=== PATIENT | female | born 1995 | race Caucasian/White ===

== ENCOUNTER 2019-12-23 09:05 | Emergency (ER) | payer OTHER, SELFPAY ==
[2019-12-23 09:31] VITALS: BP 126/72; PULSE 94; RESP 20; TEMP 36.7; O2SAT 98; BMI 21.7
--- NOTE | 2019-12-23 09:39 | HMH.EDUTC ---
[facility] Disposition Clinical Impression: Viral upper respiratory illness, Encounter for laboratory testing for COVID-19 virus Disposition: Home, Self-Care Condition on Discharge: Good Instructions: Sore Throat, DI for Headache, DI for Nasal Congestion, Preventing the Spread of Coronavirus Discharge Instructions Additional Instructions: *Monitor Temp, Over the counter Motrin or Tylenol as directed/as needed Tylenol every 4 hours and Motrin every 6 hours (as long as your family doctor has told you that you can take it) for fever or pain. and straight to ER if unable to lower temp less than 101.0 after medication given *Warm salt water gargles may help to soothe the throat *Throat Lozenges *Warm fluids like tea with honey may help to soothe the throat *Sleep elevated *Humidifier/Vaporizer *Flonase 2 sprays in each nostril daily but be aware that it may take 2-3 days before you notice improvement Your throat swab was sent for culture. Those results are typically sent to your primary care. Be sure to follow up in 2-3 days with your family doctor/primary care physician if no improvement so they can review those result and treat if necessary. If you don?t have a primary care doctor, I recommend you get one but in the mean time, you will have to return to a walk in clinic Follow up IMMEDIATELY for new or worsening symptoms or no Noticeable improvement over the next 48-72 hours. 911 for difficulty breathing or swallowing You was tested for today for COVID19 your test result should be back later this evening, you may call back later this evening to see if your test results are back and the result You was given a handout with instructions for Self Quarantine and Self isolation for while you wait on test results and what to do if they are positive Referrals: Juan Francisco Rubin MD [Primary Care Provider] - As needed Forms: Work/School Release Medical Decision Making - Yossi Inquiry Pt receiving controlled substance: No Yossi was queried for this patient: No Vital Signs: 12/23/19 09:31 Temperature 98.0 F Temperature Source Oral Pulse Rate [Right Brachial] 94 H Respiratory Rate 20 Blood Pressure [Left Arm] 126/72 Blood Pressure Mean [Left Arm] 90 Blood Pressure Source [Left Arm] Automatic Cuff Blood Pressure Position [Left Arm] Sitting 02 Sat by Pulse Oximetry 98 Oxygen Delivery Method Room Air - Lab Data Lab results reviewed: Yes: I reviewed the patient's lab results. Lab Results 12/23/19 09:31: Tst Clinic Negative 12/23/19 09:40: Influenza Type A Ag Negative, Influenza Type B Ag Negative 12/23/19 09:40: Strep Scn Rapid Clinic Negative Orders (Tests/Meds): ORDERS Category Date Time Status Covid-19 Nasal PCR ([facility]) Routine Lab 12/23/19 09:24 Ordered Strep Screen Confirmation Stat Micro 12/23/19 09:40 Received [facility] HPI - General Stated complaint: sore throat,vomiting,diarrhea Time Seen by Provider: 12/23/19 09:39 Mode of Arrival: Ambulatory Source of Information: Patient Limitations: No Limitations Description of Symptoms (Recalled from Triage Doc. by RN): PATIENT STATES SHE STARTED HAVING DIARRHEA AND VOMITING X 3 NIGHT BEFORE LAST. SHE ALSO C/O RIGHT-SIDED HEADACHE, BODY ACHES, FATIGUE, LOW-GRADE FEVER, ABDOMINAL CRAMPING, SORE THROAT AND CONGESTION THAT STARTED YESTERDAY HEENT Symptoms (Recalled from RN notes): Yes Resp Symptoms (Recalled from RN notes): Yes Skin Symptoms (Recalled from RN notes): No MS Symptoms (Recalled from RN notes): No Functional Status (Recalled from RN notes): WNL - History of Present Illness Provider Complaint: Patient states that she had nausea and vomited a couple days ago and she took some zofran and it helped States that she hasnt vomited since then but now she is concerned she may have COVID because she is having some of the symptoms States that she has been having body aches, chills, fatigue sore throat headachce and low grade fever States that she felt like she w
[2019-12-23 10:03] LABS: UTC Influenza A Antigen Negative (Negative); UTC Strep Screen (Rapid) Negative (Negative)
[2019-12-23 10:04] LABS: UTC Influenza B Antigen Negative (Negative)
[2019-12-23 10:04] LABS: UTC Pregnancy Test, Urine Negative (Negative)
[2019-12-23 10:08] VITALS: BP 126/72; PULSE 94; RESP 20; TEMP 36.7; O2SAT 98
== END 2019-12-23 10:10 | disposition home or self-care (01) ==
PROVIDERS: Emergency Provider Nurse Practitioner; PCP Internal Medicine Adolescent Medicine
DX: Z20.828 Contact with and (suspected) exposure to other viral communicable diseases (principal); J06.9 Acute upper respiratory infection, unspecified
CPT/HCPCS: 81025; 87804; 87880; 99202; U0003

== ENCOUNTER → 2020-02-13 12:22 | Outpatient (CLI) | payer OTHER, SELFPAY ==
--- NOTE | 2020-02-13 12:29 | XR_ITS ---
PROCEDURE: XR CHEST 2V CLINICAL HISTORY: ACUTE FEBRILE ILLNESS,ACUTE URI COMPARISON: No exams were available for comparison FINDINGS: The cardiomediastinal silhouette and pulmonary vascularity are within normal limits. The lungs are clear without infiltrates, suspicious nodules, or pleural effusions. There is a linear opacity overlying the right upper chest and is felt represent an overlying artifact. No acute bony findings. There is mild thoracolumbar curvature convex left. IMPRESSION: No acute findings. Dictated by: Jass Gooden MD 02/13/2020 13:05 Jass Gooden MD in [place] 02/13/2020 13:05
[2020-02-13 13:26] LABS: Basophils % 0.2 % (0.1-2.0); Eosinophils % 0.1 % (0.1-12.0); Hematocrit 44.2 % (37.0-47.0); Hemoglobin 14.4 g/dL (12.2-16.2); Lymphocytes # 1.7 K/mm3 (0.7-4.5); Lymphocytes % 18.4 % (10-50); Mean Corpuscular HGB Conc 32.6 g/dL (31.8-35.4); Mean Corpuscular Volume 88.9 fl (81-99); Mean Platelet Volume 7.3 fl (7.4-10.4); Monocytes # 0.5 K/mm3 (0.1-1.0); Monocytes % 5.3 % (1.7-9.3); Neutrophils # 7.1 K/mm3 (1.8-7.8); Platelet Count 236 K/mm3 (142-424); Red Blood Count 4.97 M/mm3 (4.20-5.40); Red Cell Distribution Width 12.7 % (11.5-17.5); White Blood Count 9.4 K/mm3 (4.8-10.8)
== END ==
PROVIDERS: PCP Internal Medicine Adolescent Medicine; Visit Provider Nurse Practitioner Family
DX: Z03.818 Encounter for observation for suspected exposure to other biological agents ruled out (principal); R05 Cough; J06.9 Acute upper respiratory infection, unspecified
CPT/HCPCS: 36415; 71046; 85025; 87275; 87276

== ENCOUNTER → 2021-03-26 10:36 | Outpatient (CLI) | payer OTHER, SELFPAY | PROVIDERS: Visit Provider Nurse Practitioner | DX: U07.1 COVID-19 (principal) | CPT/HCPCS: C9803; U0003; U0005 ==